=== PATIENT | female | born 1980 | race Caucasian/White ===

== ENCOUNTER 2018-04-29 14:51 | Emergency (ER) | payer OTHER ==
[~2018-04-29] VITALS: Ht 167.6 cm; Wt 83.5 kg
[2018-04-29] MEDS ORDERED: PYRIDIUM200 MG (15:26)
[2018-04-29] MEDS ORDERED: CIPRO500 MG (15:26)
== END 2018-04-30 00:02 | disposition home or self-care (01) ==
LOC: ER 14:51
DX: N83.291 Other ovarian cyst, right side (principal); N39.0 Urinary tract infection, site not specified; R10.2 Pelvic and perineal pain; T78.49XA Other allergy, initial encounter

== ENCOUNTER 2019-09-03 09:59 | Emergency (ER) | payer OTHER ==
[~2019-09-03] VITALS: Ht 167.6 cm; Wt 80.7 kg
[~2019-09-03 09:59] MED LIST: CIPRO500 MG; PYRIDIUM200 MG
[2019-09-03] MEDS ORDERED: SYNTHROID50 MCG PO (10:10)
[2019-09-03] MEDS ORDERED: KETO10TA2 PO (14:06)
== END 2019-09-03 14:18 | disposition home or self-care (01) ==
LOC: ER 09:59
DX: N83.292 Other ovarian cyst, left side (principal); R10.2 Pelvic and perineal pain

== ENCOUNTER 2021-04-11 12:34 | Emergency (ER) | payer OTHER ==
[~2021-04-11] VITALS: Ht 167.6 cm; Wt 81.2 kg
[~2021-04-11 12:34] MED LIST changes: +KETO10TA2 PO; +SYNTHROID50 MCG PO
[2021-04-11] MEDS ORDERED: SYNTHROID75 MCG PO (12:49)
[2021-04-11] MEDS ORDERED: ESTR0.624 PO (12:50)
== END 2021-04-11 16:13 | disposition home or self-care (01) ==
LOC: ER 12:34
DX: N39.0 Urinary tract infection, site not specified (principal); R10.2 Pelvic and perineal pain